=== PATIENT | male | born 1940 | race Caucasian/White ===

== ENCOUNTER 2016-06-26 16:40 | Emergency (ER) | payer OTHER, MEDICAID ==
[~2016-06-26] VITALS: Ht 182.9 cm; Wt 70.0 kg
[2016-06-26 18:13] VITALS: BP 142/68
[2016-06-26] MEDS ORDERED: MORPHINE (18:13)
[2016-06-26] MEDS ORDERED: HYDR-523 PO (18:13)
[2016-06-26] MEDS ORDERED: CLAR500T PO (18:13)
[2016-06-26] MEDS ORDERED: PROT40 PO (18:13)
[2016-06-26] MEDS ORDERED: ALBUTEROL (18:13)
[2016-06-26] MEDS ORDERED: RIFA550T PO (18:13)
[2016-06-26] MEDS ORDERED: CARB1TAB21 PO (18:13)
[2016-06-26] MEDS ORDERED: ERGO500043 PO (18:13)
[2016-06-26] MEDS ORDERED: ETHAMBUTOL (18:13)
[2016-06-26] MEDS ORDERED: CHLO15MO3 MM (18:13)
[2016-06-26] MEDS ORDERED: MAGN400T27 PO (18:13)
[2016-06-26] MEDS ORDERED: [UNRECOGNIZED DRUG - CODE] PO (18:13)
[2016-06-26] MEDS ORDERED: TIOT18CA3 IH (18:13)
[2016-06-26] MEDS ORDERED: TERA5CAP4 PO (18:13)
[2016-06-26] MEDS ORDERED: PROP10TA10 GT (18:13)
== END 2016-06-26 21:07 | disposition left against medical advice (07) ==
LOC: ER 16:43
DX: K92.0 Hematemesis (principal); Z53.21 Procedure and treatment not carried out due to patient leaving prior to being seen by health care provider

== ENCOUNTER 2016-09-12 15:10 | Emergency (ER) | payer OTHER, MEDICAID ==
[~2016-09-12] VITALS: Ht 172.7 cm; Wt 75.0 kg
[~2016-09-12 15:10] MED LIST: ALBUTEROL; CARB1TAB21 PO; CHLO15MO3 MM; CLAR500T PO; ERGO500013 PO; ETHAMBUTOL; HYDR-523 PO; MAGN400T27 PO; MORPHINE; PROP10TA10 GT; PROT40 PO; RIFA550T PO; TERA5CAP4 PO; TIOT18CA3 IH; [UNRECOGNIZED DRUG - CODE] PO
[2016-09-12] MEDS ORDERED: KETOROLAC 60MG/2ML VIAL IM ONE (17:45)
[2016-09-12 22:11] VITALS: BP 130/69
== END 2016-09-12 23:32 | disposition home or self-care (01) ==
LOC: ER 15:33
DX: S42.034A Nondisplaced fracture of lateral end of right clavicle, initial encounter for closed fracture (principal); Y93.89 Activity, other specified; W01.0XXA Fall on same level from slipping, tripping and stumbling without subsequent striking against object, initial encounter; Y92.128 Other place in nursing home as the place of occurrence of the external cause; Z79.899 Other long term (current) drug therapy
CPT/HCPCS: 71010; 73030; 96372; 99284; J1885; A4565

== ENCOUNTER 2016-09-24 12:14 | Emergency (ER) | payer OTHER, MEDICAID ==
[~2016-09-24] VITALS: Ht 182.9 cm; Wt 64.0 kg
[2016-09-24] MEDS ORDERED: SODIUM CHLORIDE 0.9% 1,000 ML IV ONE (13:02)
[2016-09-24] MEDS ORDERED: ONDANSETRON HCL 4MG/2ML VIAL IV STA (13:02)
[2016-09-24] MEDS ORDERED: PANTOPRAZOLE SODIUM 40 MG/VIAL IV STA (13:02)
[2016-09-24 13:21] LABS: BASOPHILS % 0.7 % (0.0-2.0); EOSINOPHILS % 2.8 % (0.0-5.0); HEMOGLOBIN. 12.2 g/dL (14.0-18.0); LYMPHOCYTES % 28.8 % (20.0-50.0); MEAN CORPUSCULAR HEMOGLOBIN 32.6 pg (28.0-32.0); MEAN CORPUSCULAR VOLUME 90.7 fL (80.0-94.0); MEAN PLATELET VOLUME 7.6 fl (7.4-10.4); MONOCYTES % 6.9 % (2.0-8.0); NEUTROPHILS % 60.8 % (40.0-76.0); PLATELET 132 x1000/uL (130-400); RED BLOOD CELL COUNT 3.74 mill/uL (4.7-6.1); RED CELL DISTRIBUTION WIDTH 13.9 % (11.6-14.6)
[2016-09-24 13:29] LABS: INR 1.1; PROTHROMBIN TIME 11.5 sec
[2016-09-24 13:37] LABS: CARBON DIOXIDE 23 mEq/L (21-32); CHLORIDE 107 mEq/L (98-107)
[2016-09-24] MEDS: HYDROCODONE/ACETAMINOPHEN 5/325MG TABLET PO ONE ×2 (13:38→16:41)
[2016-09-24 13:40] LABS: TROPONIN I < 0.02 ng/mL (0.00-0.04)
[2016-09-24 17:01] VITALS: BP 159/71
== END 2016-09-24 16:58 | disposition short-term general hospital (02) ==
LOC: ER 12:14 → CANBEDREQ 15:11 → ER 16:58
DX: K92.0 Hematemesis (principal); N28.9 Disorder of kidney and ureter, unspecified; I51.9 Heart disease, unspecified; Z94.4 Liver transplant status; Z96.642 Presence of left artificial hip joint; Z87.81 Personal history of (healed) traumatic fracture
CPT/HCPCS: 36415; 71010; 80053; 83605; 83690; 84484; 85025; 85610; 96374; 96375; 99285; C9113; J2405; J7030

== ENCOUNTER 2017-08-10 07:08 | Emergency (ER) | payer OTHER, MEDICAID ==
[~2017-08-10] VITALS: Ht 177.8 cm; Wt 70.0 kg
[~2017-08-10 07:08] MED LIST changes: +BENZ-16 PO; -[UNRECOGNIZED DRUG - CODE] PO
[2017-08-10] MEDS ORDERED: HYDROCODONE/ACETAMINOPHEN 5/325MG TABLET PO ONE (08:45)
[2017-08-10] MEDS ORDERED: ONDANSETRON 4MG ODT PO ONE (08:45)
[2017-08-10 08:47] LABS: INR 1.1; PARTIAL THROMBOPLASTIN TIME 28.5 sec (23.4-31.0)
[2017-08-10 08:52] LABS: CHLORIDE 111 mEq/L (98-107)
[2017-08-10 08:58] LABS: BASOPHILS % 0.5 % (0.0-2.0); EOSINOPHILS % 4.2 % (0.0-5.0); HEMATOCRIT. 31.1 % (42.0-52.0); HEMOGLOBIN. 11.2 g/dL (14.0-18.0); MEAN CORPUSCULAR HEMOGLOBIN 33.5 pg (28.0-32.0); MEAN CORPUSCULAR VOLUME 92.6 fL (80.0-94.0); MEAN PLATELET VOLUME 7.7 fl (7.4-10.4); MONOCYTES % 11.6 % (2.0-8.0); NEUTROPHILS % 53.7 % (40.0-76.0); PLATELET 138 x1000/uL (130-400); RED BLOOD CELL COUNT 3.36 mill/uL (4.7-6.1); RED CELL DISTRIBUTION WIDTH 14.6 % (11.6-14.6)
[2017-08-10 11:09] VITALS: BP 175/78
== END 2017-08-10 11:09 | disposition home or self-care (01) ==
LOC: ER 07:08
DX: S51.812A Laceration without foreign body of left forearm, initial encounter (principal); S00.81XA Abrasion of other part of head, initial encounter; I44.0 Atrioventricular block, first degree; I10 Essential (primary) hypertension; Z96.649 Presence of unspecified artificial hip joint; Z94.4 Liver transplant status; Z86.73 Personal history of transient ischemic attack (TIA), and cerebral infarction without residual deficits; W01.0XXA Fall on same level from slipping, tripping and stumbling without subsequent striking against object, initial encounter; Y93.01 Activity, walking, marching and hiking; Y99.8 Other external cause status; Y92.89 Other specified places as the place of occurrence of the external cause
CPT/HCPCS: 36415; 70450; 71045; 72125; 73090; 80053; 83690; 83880; 84484; 85025; 85610; 85730; 93005; 99285; Q0162